=== PATIENT | female | born 1955 | race Caucasian/White ===

== ENCOUNTER 2016-08-04 15:19 | Outpatient (CLI) | payer OTHER ==
[2015-10-14 18:52] VITALS: BMI 36.3
--- NOTE | 2016-08-04 16:06 | DI ---
EXAM: Cervical spine radiographs. HISTORY: Neck pain. COMPARISON: None available. TECHNIQUE: Frontal, lateral and odontoid views. FINDINGS: The normal curvature and alignment are maintained. Vertebral body and intervertebral dis c heights are normal. No fracture or subluxation is seen. Mild endplate osteophyte formation and f acet arthropathy noted. Prevertebral soft tissues are unremarkable. There has been previous sternot jennifer. Left-sided electronic cardiac device is present. IMPRESSION: Mild degenerative changes.
--- NOTE | 2016-08-04 16:12 | DI ---
EXAM: Five views of the lumbar spine HISTORY: Lower back pain. COMPARISON: MRI lumbar spine 08/23/2013 FINDINGS: Superior endplate deformity at L1 is unchanged with minimal superior endplate deformity at L4 also unchanged. No acute compression fracture or subluxation is identified. Scattered facet ar thropathy is present. There is mild narrowing of the lumbosacral junction. Neural foramen appear pa tent. The soft tissues are unremarkable. IMPRESSION: 1. No acute compression fracture or subluxation of the lumbar spine. 2. Old superior endplate compression deformities at L1 and L4 which are unchanged since 2014. 3. Multilevel moderate degenerative disease of the lumbar spine.
== END 2016-08-04 15:20 | disposition home or self-care (01) ==
LOC: RAD 15:19
PROVIDERS: ATTEND Pain Medicine Interventional Pain Medicine
DX: M50.122 Cervical disc disorder at C5-C6 level with radiculopathy (principal); M51.16 Intervertebral disc disorders with radiculopathy, lumbar region; M51.17 Intervertebral disc disorders with radiculopathy, lumbosacral region; M47.816 Spondylosis without myelopathy or radiculopathy, lumbar region; M47.817 Spondylosis without myelopathy or radiculopathy, lumbosacral region; M96.1 Postlaminectomy syndrome, not elsewhere classified; M50.31 Other cervical disc degeneration, high cervical region; M50.321 Other cervical disc degeneration at C4-C5 level; M50.323 Other cervical disc degeneration at C6-C7 level; M50.33 Other cervical disc degeneration, cervicothoracic region; M51.36 Other intervertebral disc degeneration, lumbar region; M51.37 Other intervertebral disc degeneration, lumbosacral region; M43.02 Spondylolysis, cervical region; M47.896 Other spondylosis, lumbar region

== ENCOUNTER 2016-08-15 22:10 | Inpatient (IN) ==
[2016-08-15 22:46] VITALS: BMI 39.7
[2016-08-16 03:13] LABS: BASOPHILS % (AUTO) 0.1 % (0.0-3.0); EOSINOPHILS # (AUTO) 0.1 K/ul (0.0-0.7); HEMATOCRIT 27.7 % (37.0-47.0); HEMOGLOBIN 9.2 g/dl (12.0-16.0); IMMATURE GRANULOCYTE % (AUTO) 0.4 % (0.0-5.0); LYMPHOCYTES # (AUTO) 0.8 K/uL (0.60-3.4); LYMPHOCYTES % (AUTO) 9.6 (10.0-50.0); MEAN CORPUSCULAR HEMOGLOBIN 29.4 pg (27.0-31.0); MEAN CORPUSCULAR HGB CONC 33.2 (31.8-35.4); MEAN CORPUSCULAR VOLUME 88.5 fl (81.0-99.0); MONOCYTES # (AUTO) 0.4 K/uL (0.4-2.0); MONOCYTES % (AUTO) 4.5 (0-10); NEUTROPHILS # (AUTO) 6.9 K/ul (2.0-6.9); NEUTROPHILS % (AUTO) 84.4; PLATELET COUNT 212 10^3/uL (140-440); RED BLOOD COUNT 3.13 10^6/ul (4.20-5.40); WHITE BLOOD COUNT 8.22 K/ul (4.6-10.2)
[2016-08-16] MEDS: PROTONIX PO SCH (05:38)
[2016-08-16] MEDS ORDERED: ZOFRAN ODT PO PRN (08:28)
[2016-08-16] MEDS ORDERED: BETAPACE PO STA (08:45)
[2016-08-16] MEDS ORDERED: BETAPACE PO SCH ×2 (09:00→21:00)
[2016-08-16] MEDS: LOPRESSOR PO SCH (09:20)
[2016-08-16] MEDS: NEURONTIN PO SCH ×2 (09:20→22:06)
[2016-08-16] MEDS: GLUCOPHAGE PO SCH ×2 (09:20→16:55)
[2016-08-16] MEDS: COLACE PO SCH (09:20)
[2016-08-16] MEDS: TRADJENTA PO SCH (09:21)
[2016-08-16] MEDS: ASPIRIN EC PO SCH (09:21)
[2016-08-16] MEDS: ZESTRIL PO SCH (09:21)
[2016-08-16] MEDS: NORCO 10-325 PO PRN ×2 (09:21→17:56)
[2016-08-16] MEDS: ZOFRAN TAB PO PRN ×2 (09:21→17:57)
[2016-08-16] MEDS: HUMULIN R SUBCUT PRN ×2 (10:26→15:23)
--- NOTE | 2016-08-16 10:26 | DI ---
Examination: Frontal and lateral radiographs of the chest. Comparison: 10/14/2015. Reason for study: History of chronic obstructive pulmonary disease. Finding: Operative changes are seen after midline sternotomy and dual lead intracardiac device placement. Th e cardiac silhouette is unchanged. No pneumothorax, pleural effusion, focal consolidation. Impression: No acute cardiopulmonary findings.
--- NOTE | 2016-08-16 11:16 | RS.OTINEVL ---
Subjective - Patient information Date of Evaluation: 08/16/16 Date of Arrival on Unit: 08/15/16 Admitted From:: Facility Transfer Usual Living Arrangement: Alone Living Arrangement Comments: Pt lives alone in her trailer that has 5-6 steps and handrails on both sides. Home Environment: Mobile Home, Rail Medical History Comments:: Was in [place] and had fractured vertebrae and 2 brain bleeds. Surgical History: Knee Replacement Surgical History Comments:: R TKA Subjective Information/ Patient Comments:: I wish I could get rid of this sickness. - Level of function Abilities prior to this admission: Pt was living at home and was driving her car. Pt has a sister that helps her. Current Level of Function: Partially Dependent Current Equipment Used at Home: Walker Pain Assessment - Pain Pain Score: 7 Side: right Pain Location Body Site: Knee Pain Aggravating Factors: ADL's, Changing Position, Standing, Sitting, Walking Pain Alleviating Factors: Ice, Medication Interventions - Objective Patient Orientation: Person, Place, Situation Current Interventions: IV's Observation: Pt Right TKA looks good with only 2 small red areas. Pt has a good bend when sitting EOB. Interventions - ROM Right Upper Extremity AROM: WFL's Left Upper Extremity AROM: WFL's - Strength Right Upper Extremity Strength: Mild Weakness Left Upper Extremity Strength: Mild Weakness - Sensation Right Upper Extremity Sensation: Intact/Normal Left Upper Extremity Sensation: Intact/Normal Balance - Sitting Balance Static Sitting Balance: Good Dynamic Sitting Balance: Good - Standing Balance Static Standing Balance: Fair Dynamic Standing Balance: Fair ADL Skills - Self Feeding Self Feeding: Independent - Grooming Grooming: Min Assist - Bathing Bathing UE: Min Assist Bathing LE: Min Assist - Dressing Dressing UE: CGA Dressing LE: Min Assist - Toilet Management Toileting Management: Min Assist Functional Mobility - Bed Mobility Rolling R/L: CGA Scooting: CGA Supine to Sit: CGA Sit to Supine: CGA - Transfers Sit to Stand: CGA Stand to Sit: CGA Stand Pivot Transfers: CGA - Ambulation Weight Bearing Status: WBAT Assistive Device Used: Rolling Walker Assistance needed with Ambulation: CGA - Safety Awareness Safety Awareness: Good Additional Treatment Performed - Additional units charged ADL: 15 - Time with patient Total treatment time: 15 Activities Patient Interests:: Watching Television, Visiting/Socializing Patient Education Patient Education: Education of diagnosis, Home Exercise Program, Home Safety, Education of Plan of Care Teaching Recipient: Patient Teaching Methods: Discussion Assessment Problem List:: Decreased level of function, Requires training/education, Decreased safety/Risk of falls, Weakness, Pain limits previous level of function Rehab Potential: Good Further Therapy Indicated?: Yes Short Term Goals - Goals GOAL 1: Pt to tolerate 15 minutes of standing activity. Goal to be met by: 08/23/16 GOAL 2: Pt to increase BUE strength to 4+/5 GOAL 3: Pt to be CGA with ADLS. Goal to be met by: 08/23/16 Aircraft Structural Repairer Goals GOAL 1: Pt to tolerate 20 minutes of standing activity. Goal to be met by: 08/22/16 GOAL 2: Pt to increase BUE strength to 5/5 Goal to be met by: 08/29/16 GOAL 3: Pt to be modified independent with ADLS. Goal to be met by: 08/29/16 Plan Plan of Care: Therapeutic EX, Neuromuscular Re-Educ, Therapeutic Activity, Self- Care/Home Management Modalities: Cold Pack/Cryotherapy Frequency of Treatment: 1-2 X day, as tolerated Duration of Treatment: 2 Weeks Anticipated Discharge Destination: Home
--- NOTE | 2016-08-16 12:03 | RS.PTINEVL ---
Subjective - Patient information Date of Evaluation: 08/16/16 Date of Arrival on Unit: 08/15/16 Admitted From:: Facility Transfer Usual Living Arrangement: Alone Living Arrangement Comments: Pt lives alone in her trailer that has 5-6 steps and handrails on both sides. Home Environment: Mobile Home, Rail Medical History Comments:: Was in [place] and had fractured vertebrae and 2 brain bleeds. Surgical History Comments:: R TKA Subjective Information/ Patient Comments:: States she has been sick to her stomach for the last 3 days. States she just had pain medication. Agrees to get up to ambulate. - Level of function Prior to this admission, the patient could do the following:: Independent Selfcare, Independent ADL's, Independent Ambulation, Perform Strip Picker/ Cooking, Drive, Participated in Social Activities Outside home Current Level of Function: Partially Dependent Current Equipment Used at Home: Walker Interventions - Objective Patient Orientation: Person, Place, Time, Situation Observation: Light dressing over right knee incision. Range of Motion - ROM Right Upper Extremity AROM: WFL's Left Upper Extremity AROM: WFL's Right Lower Extremity AROM: Moderate limitation (knee) Left Lower Extremity AROM: WFL's Muscle Strength - Muscle Strength Right Upper Extremity Strength: Normal Left Upper Extremity Strength: Normal Right Lower Extremity Strength: Mild Weakness Left Lower Extremity Strength: Normal Balance - Sitting Balance and Reactions Static Sitting Balance: Good Dynamic Sitting Balance: Good - Standing Balance and Reactions Static Standing Balance: Good (-) Dynamic Standing Balance: Fair (+) Functional Mobility - Bed Mobility Supine to Sit: CGA, 1 person assist, Verbal Cues, Tactile Cues Sit to Supine: CGA, 1 person assist, Verbal Cues, Tactile Cues - Transfers Sit to Stand: CGA, 1 person assist, Verbal Cues, Tactile Cues Stand to Sit: CGA, 1 person assist, Verbal Cues, Tactile Cues Stand Pivot Transfers: CGA, 1 person assist, Verbal Cues, Tactile Cues - Safety Awareness Safety Awareness: Fair Ambulation - Ambulation Weight Bearing Status: FWB Assistive Device Used: Rolling Walker Distance: 80 feet Assistance needed with Ambulation: CGA, 1 person assist, Verbal Cues, Tactile Cues Gait Deviations: Narrow Based gait, Forward posture, Short stride Ambulation Comments: Decreased right knee and hip flexion during swing phase. Lacks good heel strike or toe off on right LE. Decreased stance on the right LE. Factors Affecting Ambulation: Pain, Decreased ROM, Decreased Safety, Limited Endurance Treatment time - Time with patient Total treatment time: 19 Assessment - Assessment Problem List:: Decreased level of function, Requires training/education, Decreased safety/Risk of falls Rehab Potential: Good Further Therapy Indicated?: Yes Short Term Goals GOAL #1: Supine to sit independent with verbal cues. Goal to be met by: 08/19/16 GOAL #2: Sit to stand with supvn with verbal cues. Goal to be met by: 08/19/16 GOAL #3: Amb. 100 feet with SBA of one and good heel strike. Goal to be met by: 08/19/16 Registration Rep Goals GOAL #1: Patient independent with all bed mobility. Goal to be met by: 08/21/16 GOAL #2: All transfers independent with good safety. Goal to be met by: 08/21/16 GOAL #3: Amb. with RW household distances, independent with good safey. Goal to be met by: 08/21/16 Plan Plan of Care: Therapeutic EX, Neuromuscular Re-Educ, Therapeutic Activity, Self- Care/Home Management Modalities: Cold Pack/Cryotherapy (right knee) Frequency of Treatment: 1-2 X day, as tolerated Duration of Treatment: 4-5 days Anticipated Discharge Destination: Home
[2016-08-16] MEDS: XARELTO PO SCH (16:55)
[2016-08-16] MEDS ORDERED: NON-FORMULARY MEDICATION (Sertraline Hcl [Sertraline Hcl] 100 MG) PO SCH (21:00)
[2016-08-16] MEDS ORDERED: CRESTOR PO SCH (21:00)
[2016-08-16] MEDS ORDERED: PROTONIX PO SCH (21:00)
[2016-08-16] MEDS ORDERED: NON-FORMULARY MEDICATION (Ropinirole Hcl [Requip] 0.5 MG) PO SCH (21:00)
[2016-08-16] MEDS: BETAPACE PO SCH (22:06)
[2016-08-16] MEDS: REQUIP PO SCH (22:06)
[2016-08-16] MEDS: ZOLOFT PO SCH (22:07)
[2016-08-16] MEDS: CRESTOR PO SCH (22:07)
[2016-08-17] MEDS: PROTONIX PO SCH (05:42)
[2016-08-17 07:50] LABS: BASOPHILS % (AUTO) 0.4 % (0.0-3.0); EOSINOPHILS # (AUTO) 0.2 K/ul (0.0-0.7); HEMATOCRIT 26.6 % (37.0-47.0); HEMOGLOBIN 8.8 g/dl (12.0-16.0); IMMATURE GRANULOCYTE % (AUTO) 0.6 % (0.0-5.0); LYMPHOCYTES # (AUTO) 1.3 K/uL (0.60-3.4); LYMPHOCYTES % (AUTO) 15.4 (10.0-50.0); MEAN CORPUSCULAR HGB CONC 33.1 (31.8-35.4); MEAN CORPUSCULAR VOLUME 87.8 fl (81.0-99.0); MONOCYTES # (AUTO) 0.6 K/uL (0.4-2.0); MONOCYTES % (AUTO) 7.2 (0-10); NEUTROPHILS # (AUTO) 6.1 K/ul (2.0-6.9); NEUTROPHILS % (AUTO) 74.4; PLATELET COUNT 264 10^3/uL (140-440); RED BLOOD COUNT 3.03 10^6/ul (4.20-5.40); WHITE BLOOD COUNT 8.18 K/ul (4.6-10.2)
[2016-08-17] MEDS: NEURONTIN PO SCH ×2 (08:42→20:58)
[2016-08-17] MEDS: ASPIRIN EC PO SCH (08:42)
[2016-08-17] MEDS: ZESTRIL PO SCH (08:42)
[2016-08-17] MEDS: TRADJENTA PO SCH (08:42)
[2016-08-17] MEDS: GLUCOPHAGE PO SCH ×2 (08:43→17:08)
[2016-08-17] MEDS: COLACE PO SCH (08:43)
[2016-08-17] MEDS: LOPRESSOR PO SCH (08:43)
[2016-08-17] MEDS: ZOFRAN TAB PO PRN (08:59)
[2016-08-17] MEDS: ATIVAN PO PRN (11:46)
[2016-08-17] MEDS: NORCO 10-325 PO PRN ×2 (13:03→19:09)
[2016-08-17] MEDS ORDERED: PHENERGAN 25 MG/ML VIAL 12.5 MG in SODIUM CHLORIDE 50 ML IV PRN (13:21)
[2016-08-17] MEDS: HUMULIN R SUBCUT PRN ×2 (15:28→18:42)
[2016-08-17] MEDS: XARELTO PO SCH (17:09)
[2016-08-17] MEDS: REQUIP PO SCH (20:57)
[2016-08-17] MEDS: ZOLOFT PO SCH (20:57)
[2016-08-17] MEDS: CRESTOR PO SCH (20:58)
[2016-08-17] MEDS: BETAPACE PO SCH (20:58)
[2016-08-18 04:46] LABS: BASOPHILS % (AUTO) 0.5 % (0.0-3.0); EOSINOPHILS # (AUTO) 0.2 K/ul (0.0-0.7); EOSINOPHILS % (AUTO) 3.1 % (0.0-7.0); HEMATOCRIT 27.9 % (37.0-47.0); HEMOGLOBIN 9.2 g/dl (12.0-16.0); IMMATURE GRANULOCYTE % (AUTO) 1.1 % (0.0-5.0); LYMPHOCYTES % (AUTO) 26.8 (10.0-50.0); MEAN CORPUSCULAR HEMOGLOBIN 29.3 pg (27.0-31.0); MEAN CORPUSCULAR VOLUME 88.9 fl (81.0-99.0); MONOCYTES # (AUTO) 0.5 K/uL (0.4-2.0); MONOCYTES % (AUTO) 7.2 (0-10); NEUTROPHILS # (AUTO) 4.6 K/ul (2.0-6.9); NEUTROPHILS % (AUTO) 61.3; PLATELET COUNT 276 10^3/uL (140-440); RED BLOOD COUNT 3.14 10^6/ul (4.20-5.40); WHITE BLOOD COUNT 7.49 K/ul (4.6-10.2)
[2016-08-18 05:04] LABS: ALBUMIN 2.8 g/dL (3.4-5.0); ALBUMIN/GLOBULIN RATIO 0.72; ANION GAP 13.1; BILIRUBIN,TOTAL 0.64 mg/dL (0.00-1.20); CALCIUM 8.7 mg/dL (8.2-10.2); POTASSIUM 4.1 mmol/L (3.5-5.10); TOTAL PROTEIN 6.7 g/dL (5.8-8.1)
[2016-08-18] MEDS: PROTONIX PO SCH (05:36)
[2016-08-18] MEDS: LOPRESSOR PO SCH (08:49)
[2016-08-18] MEDS: COLACE PO SCH (08:49)
[2016-08-18] MEDS: NEURONTIN PO SCH ×2 (08:50→20:37)
[2016-08-18] MEDS: NORCO 10-325 PO PRN ×3 (08:50→22:57)
[2016-08-18] MEDS: GLUCOPHAGE PO SCH ×2 (08:50→16:37)
[2016-08-18] MEDS: TRADJENTA PO SCH (08:50)
[2016-08-18] MEDS: ASPIRIN EC PO SCH (08:50)
[2016-08-18] MEDS: ZESTRIL PO SCH (08:50)
[2016-08-18] MEDS: HUMULIN R SUBCUT PRN ×2 (10:54→18:30)
--- NOTE | 2016-08-18 14:08 | PN ---
DATE OF SERVICE: 08/17/16 SUBJECTIVE: The patient was admitted for the right knee replacement, physical therapy and the occupational therapy. She is doing fine. The patient's friend is in the room. REVIEW OF SYSTEMS: CONSTITUTIONAL: No fever, no chills. HEENT: Normal. ENDOCRINE: No weight gain, no weight loss. CVS: No angina symptoms. No CHF symptoms. No palpitations. No atypical chest pain for CAD. No shortness of breath. No PND, no orthopnea. RESPIRATORY: No cough, no hemoptysis. GI: No nausea, no vomiting. No abdominal pain. Bowel movements. : No hematuria. No polyuria. MUSCULOSKELETAL:. No joint swelling. Complains of pain in the right knee. PSYCHIATRIC: Not anxious. No depression. No suicidal thoughts. No homicidal thoughts. SKIN: Intact. No rash. PHYSICAL EXAMINATION: V/S: Blood pressure 147/75, respiratory rate 14, heart rate 74 and temperature 98.1. HEENT: Normocephalic, atraumatic. Ears, eyes, nose and throat normal. Mucosa dry. Pallor positive. No icterus. NECK: Supple. No JVD, no carotid bruit. No lymphadenopathy. LUNGS: Decreased and clear to auscultation. No rales or rhonchi. HEART: S1, S2 normal. No S3. No murmur, gallop or regurgitation. ABDOMEN: Soft, nontender. Bowel sounds active. No rigidity. No rebound or guarding. No CVA tenderness. EXTREMITIES: No clubbing, cyanosis or pedal edema. Right knee surgical site looks healthy. MUSCULOSKELETAL: No joint swelling. NEUROLOGIC: Awake, alert, oriented times three. No focal deficit. LYMPHATIC: No lymph nodes palpable. SKIN: Intact. LABS: WBC 8.18, hgb 8.8, hct 26.6 and plt count 264. ASSESSMENT: 1. Right knee replacement. 2. Diabetes 3. Anemia, post surgical and anemia of chronic disease PLAN: 1. Continue PT/OT 2. Diet Cardiac and diabetic 3. Will go ahead and get CBC and CMP every other day 4. Xarelto for the DVT prophylaxis. TIME SPENT: More than 30 minutes MTDD
--- NOTE | 2016-08-18 14:40 | HP ---
DATE OF SERVICE: 08/15/16 REASON FOR HOSPITALIZATION: Status post right knee replacement. HISTORY OF PRESENT ILLNESS: The patient is a 61 year old female who is being followed by Dr. Harmon. The patient went for the elective right knee replacement, it was done by Dr. Sanz. After the surgery the patient was started on the weight baring and the patient was needing some physical therapy for which the patient was transferred to the [facility]. As of now the patient is walking with the walker, pain 8 /10. Some constipation is present otherwise no PND or orthopnea. REVIEW OF SYSTEMS: CONSTITUTIONAL: No night sweats. No fatigue, malaise, lethargy. No fever or chills. HEENT: Eyes: No visual changes. No eye pain. No eye discharge. ENT: No runny nose. No epistaxis. No sinus pain. No sore throat. No odynophagia. No ear pain. No congestion. RESPIRATORY: No cough, no congestion. No hemoptysis. CARDIOVASCULAR: No angina symptoms. No CHF symptoms. No atypical chest pain for CAD. No palpitations. No shortness of breath. GASTROINTESTINAL: No abdominal pain. No nausea or vomiting. No diarrhea or constipation. No hematemesis. No hematochezia. GENITOURINARY: No urgency. No frequency. No dysuria. No hematuria. No obstructive symptoms. No discharge. No pain. No significant abnormal bleeding. MUSCULOSKELETAL: No musculoskeletal pain. No joint swelling. No arthritis. Pain in right knee. NEUROLOGICAL: No headache. No neck pain. No syncope. No seizures. No dizziness. PSYCHIATRIC: Not anxious. No depression. No suicidal thoughts. No homicidal thoughts. SKIN: No rash. No lesions. No wounds. ENDOCRINE: No unexplained weight loss. No weight gain. HEMATOLOGIC/LYMPHATIC: No anemia. No purpura. No petechiae. No prolonged or excessive bleeding. No palpable lymph nodes. PERSONAL/FAMILY/SOCIAL HISTORY: The patient does not smoke or drink. Family history is significant for the lung cancer and the coronary artery disease. PAST MEDICAL/SURGICAL PROBLEMS: Coronary artery disease, status post bypass surgery Hypertension Dyslipidemia Diabetes Rheumatoid arthritis GERD Anxiety Two heart attacks Bypass surgeries x2 Right knee replacement, Dr. Sanz MEDICATIONS: Neurontin Metformin Sotalol Famotidine Sertraline Apixaban Lisinopril Aspirin Ropinirole Zithromax Rosuvastatin Albuterol ALLERGIES: Tylenol Oxycodone PHYSICAL EXAMINATION: GENERAL: The patient is VITAL SIGNS: Blood pressure 134/73, respiratory rate 18, heart rate 61 and temperature 97.1. HEENT: Head normocephalic, atraumatic. Eyes: Extraocular muscles are intact. Pupils are equal, round and reactive to light and accommodation. Ears: No lesions. Nose appeared normal. Throat: No exudate or erythema. Mucosa dry. Pallor positive. NECK: Supple. No JVD, no carotid bruit. No lymphadenopathy or thyromegaly. LUNGS: Clear to auscultation. Percussion note normal. Chest symmetrical. HEART: S1, S2, no S3. No murmurs. No cyanosis or clubbing. No ascites. Pulses: Dorsalis pedis and posterior tibial pulses +1 to +2 both sides. ABDOMEN: Soft. Nontender. Bowel sounds active. No CVA tenderness. No mass felt. EXTREMITIES: No edema. Full range of motion of all extremities, equal. Right knee surgical site looks healthy. NEUROLOGIC: No focal deficit. Cranial nerves II through XII are grossly intact. No headache, no double vision or headache. SKIN: Not dry. Intact. Turgor - normal. LYMPHATIC: No palpable lymph nodes/no lymphedema. MUSCULOSKELETAL: Normal joints with no swelling. Muscle tone is normal. LABS: WBC 8.22, hgb 9.2, hct 27.7, plt count 212, BUN and creatinine was normal from the [facility] which were not done at [place]. ASSESSMENT: 1. Status post right knee replacement. 2. Diabetes 3. Anemia, post surgical 4. Rheumatoid arthritis 5. Hypertension 6. Dyslipidemia 7. Atrial fibrillation 8. CAD 9. Bypass surgery PLAN: 1. Admit patient to the [facility] 2. PT/OT evaluated and treat 3. Accu-check Q 4 hours and coverage 4. ADA diet 5. Continue home medication 6. Xarelto for the DVT prophylaxis TIME SPENT: More than 70 minutes. MTDD
[2016-08-18] MEDS: XARELTO PO SCH (16:37)
[2016-08-18] MEDS: REQUIP PO SCH (20:36)
[2016-08-18] MEDS: CRESTOR PO SCH (20:37)
[2016-08-18] MEDS: ZOLOFT PO SCH (20:37)
[2016-08-18] MEDS: BETAPACE PO SCH (20:37)
[2016-08-18] MEDS: ATIVAN PO PRN (22:57)
[2016-08-19] MEDS: PROTONIX PO SCH (05:35)
[2016-08-19] MEDS: LOPRESSOR PO SCH (08:47)
[2016-08-19] MEDS: COLACE PO SCH (08:47)
[2016-08-19] MEDS: ZESTRIL PO SCH (08:47)
[2016-08-19] MEDS: ASPIRIN EC PO SCH (08:47)
[2016-08-19] MEDS: TRADJENTA PO SCH (08:48)
[2016-08-19] MEDS: GLUCOPHAGE PO SCH ×2 (08:48→17:23)
[2016-08-19] MEDS: NEURONTIN PO SCH ×2 (08:49→20:39)
[2016-08-19] MEDS: HUMULIN R SUBCUT PRN ×3 (11:10→20:42)
[2016-08-19] MEDS: NORCO 10-325 PO PRN ×2 (13:10→19:06)
--- NOTE | 2016-08-19 13:15 | PCM.PROG ---
Attending Provider: ATTENDING PROVIDER: Dr. NAKUL MARTINEZ DATE OF SERVICE: 08/19/16 SUBJECTIVE: This 61 year old WHITE/ F was hospitalized 08/15/16. The patient's incision is healing well. She has been up walking with PT/OT and is progressing to meet her goals for rehab to home. REVIEW OF SYSTEMS: CONSTITUTIONAL: No fever, no chills. ENDOCRINE: No weight loss or weight gain. HEENT: No sinus drainage, no sore throat. CVS: No angina symptoms. No CHF symptoms. No palpitations. No atypical chest pain for CAD. No shortness of breath. RESPIRATORY: No cough, no hemoptysis. GI: No melena. No abdominal pain. No nausea, no vomiting. : No hematuria. No polyuria. SKIN: No rash. Right knee incision healthy looking. No drainage, no swelling. MUSCULOSKELETAL: No pain. SOCIAL SCIENTIST: No blackout, no dizziness. No headache. No double vision. PSYCHIATRIC: Not anxious; no depression. No suicidal thoughts. No homicidal thoughts. PHYSICAL EXAMINATION: GENERAL: Lying in bed in no distress. VITAL SIGNS: Temperature 97.5 F, Pulse 59, Respiratory Rate 16, BP 100/54, Pulse Ox 98% HEENT: Normocephalic, atraumatic. Mucosa is dry, pallor positive. NECK: No JVP, no carotid bruit. No lymphadenopathy. CARDIAC: S1, S2, no S3. No murmur, gallop or regurgitation. LUNGS: Clear to auscultation. ABDOMEN: Soft, non-tender. Bowel sounds active. No rigidity, guarding or CVA tenderness. EXTREMITIES: No clubbing, cyanosis or edema. Right knee incision. NEUROLOGIC: Awake, alert and oriented x3. LYMPHATIC: No palpable lymph nodes SKIN: Not dry. Intact. MUSCULOSKELETAL: No joint swelling. LAB REVIEW: 08/18/16 04:43 08/18/16 04:43 ASSESSMENT: 1. RIGHT KNEE REPLACEMENT 2. DIABETES 3. ANEMIA, POST SURGICAL AND ANEMIA OF CHRONIC DISEASE PLAN: 1. Continue present management. Plan and coordination of the patient's care discussed in the presence of Heating And Refrigeration Inspector and nurse. SCRIBED BY: JONI MOTTA Network Security Analyst scribed while in presence of service performed by Dr. NAKUL MARTINEZ on 08/19/16 ([id number])
[2016-08-19] MEDS: XARELTO PO SCH (17:23)
[2016-08-19] MEDS: ATIVAN PO PRN (20:39)
[2016-08-19] MEDS: CRESTOR PO SCH (20:39)
[2016-08-19] MEDS: ZOLOFT PO SCH (20:39)
[2016-08-19] MEDS: BETAPACE PO SCH (20:40)
[2016-08-19] MEDS: REQUIP PO SCH (20:40)
[2016-08-20 04:38] LABS: BASOPHILS % (AUTO) 0.5 % (0.0-3.0); EOSINOPHILS # (AUTO) 0.2 K/ul (0.0-0.7); EOSINOPHILS % (AUTO) 2.6 % (0.0-7.0); HEMATOCRIT 25.5 % (37.0-47.0); HEMOGLOBIN 8.3 g/dl (12.0-16.0); IMMATURE GRANULOCYTE % (AUTO) 1.2 % (0.0-5.0); LYMPHOCYTES # (AUTO) 1.8 K/uL (0.60-3.4); MEAN CORPUSCULAR HGB CONC 32.5 (31.8-35.4); MEAN CORPUSCULAR VOLUME 89.2 fl (81.0-99.0); MONOCYTES # (AUTO) 0.6 K/uL (0.4-2.0); MONOCYTES % (AUTO) 7.3 (0-10); NEUTROPHILS # (AUTO) 5.5 K/ul (2.0-6.9); NEUTROPHILS % (AUTO) 66.4; PLATELET COUNT 287 10^3/uL (140-440); RED BLOOD COUNT 2.86 10^6/ul (4.20-5.40); WHITE BLOOD COUNT 8.32 K/ul (4.6-10.2)
[2016-08-20 05:03] LABS: ALBUMIN 2.7 g/dL (3.4-5.0); ALBUMIN/GLOBULIN RATIO 0.82; ANION GAP 15.7; BILIRUBIN,TOTAL 0.56 mg/dL (0.00-1.20); BUN/CREATININE RATIO 27.55; CALCIUM 8.1 mg/dL (8.2-10.2); CREATININE 1.27 mg/dL (0.60-1.30); POTASSIUM 4.7 mmol/L (3.5-5.10)
[2016-08-20] MEDS: HUMULIN R SUBCUT PRN ×4 (05:37→21:19)
[2016-08-20] MEDS: PROTONIX PO SCH (05:38)
[2016-08-20] MEDS: LOPRESSOR PO SCH (09:02)
[2016-08-20] MEDS: ASPIRIN EC PO SCH (09:02)
[2016-08-20] MEDS: COLACE PO SCH (09:02)
[2016-08-20] MEDS: ZESTRIL PO SCH (09:03)
[2016-08-20] MEDS: TRADJENTA PO SCH (09:03)
[2016-08-20] MEDS: GLUCOPHAGE PO SCH ×2 (09:03→17:22)
[2016-08-20] MEDS: NEURONTIN PO SCH ×2 (09:04→21:14)
[2016-08-20] MEDS: XARELTO PO SCH (17:22)
[2016-08-20] MEDS: CRESTOR PO SCH (21:15)
[2016-08-20] MEDS: REQUIP PO SCH (21:15)
[2016-08-20] MEDS: ZOLOFT PO SCH (21:16)
[2016-08-20] MEDS: BETAPACE PO SCH (21:18)
[2016-08-21] MEDS: PROTONIX PO SCH (06:02)
[2016-08-21] MEDS: HUMULIN R SUBCUT PRN ×3 (06:57→17:48)
[2016-08-21] MEDS: COLACE PO SCH (08:37)
[2016-08-21] MEDS: NEURONTIN PO SCH ×2 (08:37→20:08)
[2016-08-21] MEDS: GLUCOPHAGE PO SCH ×2 (08:37→17:38)
[2016-08-21] MEDS: ASPIRIN EC PO SCH (08:38)
[2016-08-21] MEDS: LOPRESSOR PO SCH (08:38)
[2016-08-21] MEDS: ZESTRIL PO SCH (08:38)
[2016-08-21] MEDS: NORCO 10-325 PO PRN ×2 (08:39→16:25)
[2016-08-21] MEDS: TRADJENTA PO SCH (08:40)
[2016-08-21 15:04] LABS: IMMATURE RETIC FRACTION 27.9; RETICULOCYTE % 3.48 %
[2016-08-21 15:55] LABS: FERRITIN 109.4 ng/mL (4.63-204.00)
[2016-08-21] MEDS: XARELTO PO SCH (17:38)
[2016-08-21] MEDS: CRESTOR PO SCH (20:07)
[2016-08-21] MEDS: REQUIP PO SCH (20:08)
[2016-08-21] MEDS: ZOLOFT PO SCH (20:08)
[2016-08-21] MEDS: BETAPACE PO SCH (20:08)
[2016-08-21] MEDS: ATIVAN PO PRN (20:15)
[2016-08-22] MEDS: PROTONIX PO SCH (05:29)
[2016-08-22 06:21] LABS: BASOPHILS % (AUTO) 0.4 % (0.0-3.0); EOSINOPHILS # (AUTO) 0.2 K/ul (0.0-0.7); EOSINOPHILS % (AUTO) 3.2 % (0.0-7.0); HEMATOCRIT 25.8 % (37.0-47.0); HEMOGLOBIN 8.3 g/dl (12.0-16.0); IMMATURE GRANULOCYTE % (AUTO) 1.5 % (0.0-5.0); LYMPHOCYTES # (AUTO) 1.5 K/uL (0.60-3.4); MEAN CORPUSCULAR HEMOGLOBIN 29.1 pg (27.0-31.0); MEAN CORPUSCULAR HGB CONC 32.2 (31.8-35.4); MEAN CORPUSCULAR VOLUME 90.5 fl (81.0-99.0); MONOCYTES # (AUTO) 0.5 K/uL (0.4-2.0); MONOCYTES % (AUTO) 6.6 (0-10); NEUTROPHILS # (AUTO) 4.9 K/ul (2.0-6.9); NEUTROPHILS % (AUTO) 67.3; PLATELET COUNT 261 10^3/uL (140-440); RED BLOOD COUNT 2.85 10^6/ul (4.20-5.40); WHITE BLOOD COUNT 7.28 K/ul (4.6-10.2)
[2016-08-22 06:47] LABS: ALBUMIN 2.7 g/dL (3.4-5.0); ALBUMIN/GLOBULIN RATIO 0.79; ANION GAP 14.3; BILIRUBIN,TOTAL 0.41 mg/dL (0.00-1.20); BUN/CREATININE RATIO 22.34; CALCIUM 8.4 mg/dL (8.2-10.2); CREATININE 0.94 mg/dL (0.60-1.30); POTASSIUM 5.3 mmol/L (3.5-5.10); TOTAL PROTEIN 6.1 g/dL (5.8-8.1)
[2016-08-22] MEDS: HUMULIN R SUBCUT PRN ×2 (07:08→11:28)
[2016-08-22] MEDS: ZESTRIL PO SCH (08:49)
[2016-08-22] MEDS: ASPIRIN EC PO SCH (08:49)
[2016-08-22] MEDS: COLACE PO SCH (08:49)
[2016-08-22] MEDS: NEURONTIN PO SCH ×2 (08:49→20:15)
[2016-08-22] MEDS: TRADJENTA PO SCH (08:50)
[2016-08-22] MEDS: GLUCOPHAGE PO SCH ×2 (08:50→17:05)
[2016-08-22] MEDS: LOPRESSOR PO SCH (08:50)
[2016-08-22] MEDS: NORCO 10-325 PO PRN ×2 (08:55→19:13)
[2016-08-22] MEDS: FERROUS SULFATE PO SCH ×2 (17:05→20:15)
[2016-08-22] MEDS: XARELTO PO SCH (17:05)
[2016-08-22] MEDS: BETAPACE PO SCH (20:14)
[2016-08-22] MEDS: REQUIP PO SCH (20:14)
[2016-08-22] MEDS: ZOLOFT PO SCH (20:15)
[2016-08-22] MEDS: CRESTOR PO SCH (20:15)
[2016-08-22] MEDS: ATIVAN PO PRN (20:39)
[2016-08-23] MEDS: PROTONIX PO SCH (05:33)
[2016-08-23 07:45] LABS: BASOPHILS % (AUTO) 0.5 % (0.0-3.0); EOSINOPHILS # (AUTO) 0.2 K/ul (0.0-0.7); EOSINOPHILS % (AUTO) 3.2 % (0.0-7.0); HEMATOCRIT 26.2 % (37.0-47.0); HEMOGLOBIN 8.3 g/dl (12.0-16.0); IMMATURE GRANULOCYTE % (AUTO) 1.3 % (0.0-5.0); LYMPHOCYTES # (AUTO) 1.8 K/uL (0.60-3.4); LYMPHOCYTES % (AUTO) 24.1 (10.0-50.0); MEAN CORPUSCULAR HEMOGLOBIN 28.6 pg (27.0-31.0); MEAN CORPUSCULAR HGB CONC 31.7 (31.8-35.4); MEAN CORPUSCULAR VOLUME 90.3 fl (81.0-99.0); MONOCYTES # (AUTO) 0.6 K/uL (0.4-2.0); MONOCYTES % (AUTO) 7.4 (0-10); NEUTROPHILS # (AUTO) 4.7 K/ul (2.0-6.9); NEUTROPHILS % (AUTO) 63.5; PLATELET COUNT 273 10^3/uL (140-440); WHITE BLOOD COUNT 7.44 K/ul (4.6-10.2)
[2016-08-23 08:14] LABS: ALBUMIN 2.8 g/dL (3.4-5.0); ALBUMIN/GLOBULIN RATIO 0.82; ANION GAP 13.5; BILIRUBIN,TOTAL 0.4 mg/dL (0.00-1.20); BUN/CREATININE RATIO 21.78; CALCIUM 8.5 mg/dL (8.2-10.2); CREATININE 1.01 mg/dL (0.60-1.30); POTASSIUM 5.5 mmol/L (3.5-5.10); TOTAL PROTEIN 6.2 g/dL (5.8-8.1)
[2016-08-23] MEDS: ASPIRIN EC PO SCH (09:32)
[2016-08-23] MEDS: TRADJENTA PO SCH (09:32)
[2016-08-23] MEDS: GLUCOPHAGE PO SCH ×2 (09:32→16:43)
[2016-08-23] MEDS: COLACE PO SCH (09:33)
[2016-08-23] MEDS: FERROUS SULFATE PO SCH ×3 (09:33→20:43)
[2016-08-23] MEDS: NEURONTIN PO SCH ×2 (09:33→20:43)
[2016-08-23] MEDS: LOPRESSOR PO SCH (09:33)
[2016-08-23] MEDS: ZESTRIL PO SCH (09:33)
[2016-08-23] MEDS: NORCO 10-325 PO PRN (09:59)
[2016-08-23] MEDS: HUMULIN R SUBCUT PRN (11:49)
[2016-08-23] MEDS: XARELTO PO SCH (16:44)
[2016-08-23] MEDS ORDERED: KAYEXALATE SUSP PO STA (17:16)
[2016-08-23] MEDS: ZOLOFT PO SCH (20:41)
[2016-08-23] MEDS: BETAPACE PO SCH (20:42)
[2016-08-23] MEDS: CRESTOR PO SCH (20:42)
[2016-08-23] MEDS: REQUIP PO SCH (20:42)
[2016-08-23] MEDS: ATIVAN PO PRN (20:45)
[2016-08-24 04:56] LABS: OCCULT BLOOD INTERNAL QC 1 INTERNAL QC VALID; OCCULT BLOOD SAMPLE 1 NEGATIVE (NEGATIVE)
[2016-08-24 05:05] LABS: BASOPHILS # (AUTO) 0.1 K/uL (0-0.2); BASOPHILS % (AUTO) 0.7 % (0.0-3.0); EOSINOPHILS # (AUTO) 0.2 K/ul (0.0-0.7); EOSINOPHILS % (AUTO) 2.7 % (0.0-7.0); HEMATOCRIT 26.3 % (37.0-47.0); HEMOGLOBIN 8.3 g/dl (12.0-16.0); IMMATURE GRANULOCYTE % (AUTO) 0.7 % (0.0-5.0); LYMPHOCYTES # (AUTO) 2.1 K/uL (0.60-3.4); LYMPHOCYTES % (AUTO) 27.5 (10.0-50.0); MEAN CORPUSCULAR HEMOGLOBIN 28.4 pg (27.0-31.0); MEAN CORPUSCULAR HGB CONC 31.6 (31.8-35.4); MEAN CORPUSCULAR VOLUME 90.1 fl (81.0-99.0); MONOCYTES # (AUTO) 0.6 K/uL (0.4-2.0); MONOCYTES % (AUTO) 7.2 (0-10); NEUTROPHILS # (AUTO) 4.7 K/ul (2.0-6.9); NEUTROPHILS % (AUTO) 61.2; PLATELET COUNT 287 10^3/uL (140-440); RED BLOOD COUNT 2.92 10^6/ul (4.20-5.40); WHITE BLOOD COUNT 7.68 K/ul (4.6-10.2)
[2016-08-24 05:23] LABS: ALBUMIN 2.9 g/dL (3.4-5.0); ALBUMIN/GLOBULIN RATIO 0.85; ANION GAP 13.8; BILIRUBIN,TOTAL 0.36 mg/dL (0.00-1.20); BUN/CREATININE RATIO 18.75; CALCIUM 8.6 mg/dL (8.2-10.2); CREATININE 0.96 mg/dL (0.60-1.30); POTASSIUM 4.8 mmol/L (3.5-5.10); TOTAL PROTEIN 6.3 g/dL (5.8-8.1)
[2016-08-24] MEDS: PROTONIX PO SCH (06:09)
[2016-08-24] MEDS: ASPIRIN EC PO SCH (08:50)
[2016-08-24] MEDS: GLUCOPHAGE PO SCH ×2 (08:50→17:05)
[2016-08-24] MEDS: COLACE PO SCH (08:50)
[2016-08-24] MEDS: TRADJENTA PO SCH (08:50)
[2016-08-24] MEDS: ZESTRIL PO SCH (08:50)
[2016-08-24] MEDS: NEURONTIN PO SCH ×2 (08:50→20:55)
[2016-08-24] MEDS: LOPRESSOR PO SCH (08:51)
[2016-08-24] MEDS: FERROUS SULFATE PO SCH ×3 (08:51→20:54)
[2016-08-24 10:47] LABS: BILIRUBIN,URINE Negative (NEGATIVE); KETONES,URINE Negative (NEGATIVE); LEUKOCYTE ESTERASE ,URINE 2+ (NEGATIVE); NITRITE,URINE Negative (NEGATIVE); PROTEIN,URINE 2+ (NEGATIVE); URINE, BLOOD 2+ (NEGATIVE)
[2016-08-24 10:49] LABS: ADD URINE MICROSCOPIC YES
[2016-08-24 10:50] LABS: BACTERIA,URINE 3+ (NOT PRESENT)
[2016-08-24] MEDS: HUMULIN R SUBCUT PRN ×3 (11:46→20:55)
[2016-08-24] MEDS: NORCO 10-325 PO PRN ×3 (15:28→21:30)
[2016-08-24 16:55] LABS: OCCULT BLOOD INTERNAL QC 2 INTERNAL QC VALID; OCCULT BLOOD INTERNAL QC 3 INTERNAL QC VALID; OCCULT BLOOD SAMPLE 2 NO SPECIMEN RECEIVED (NEGATIVE); OCCULT BLOOD SAMPLE 3 NO SPECIMEN RECEIVED (NEGATIVE)
[2016-08-24] MEDS: XARELTO PO SCH (17:05)
[2016-08-24] MEDS: CRESTOR PO SCH (20:53)
[2016-08-24] MEDS: REQUIP PO SCH (20:53)
[2016-08-24] MEDS: ATIVAN PO PRN (20:53)
[2016-08-24] MEDS: ZOLOFT PO SCH (20:54)
[2016-08-24] MEDS: BETAPACE PO SCH (20:55)
[2016-08-25] MEDS: BACTRIM DS 800/160 MG PO SCH ×3 (00:19→20:49)
[2016-08-25 05:27] LABS: BASOPHILS % (AUTO) 0.4 % (0.0-3.0); EOSINOPHILS # (AUTO) 0.2 K/ul (0.0-0.7); EOSINOPHILS % (AUTO) 2.9 % (0.0-7.0); HEMATOCRIT 25.1 % (37.0-47.0); IMMATURE GRANULOCYTE % (AUTO) 0.7 % (0.0-5.0); LYMPHOCYTES # (AUTO) 1.7 K/uL (0.60-3.4); MEAN CORPUSCULAR HGB CONC 31.9 (31.8-35.4); MEAN CORPUSCULAR VOLUME 90.9 fl (81.0-99.0); MONOCYTES # (AUTO) 0.4 K/uL (0.4-2.0); MONOCYTES % (AUTO) 5.5 (0-10); NEUTROPHILS % (AUTO) 67.5; PLATELET COUNT 267 10^3/uL (140-440); RED BLOOD COUNT 2.76 10^6/ul (4.20-5.40); WHITE BLOOD COUNT 7.47 K/ul (4.6-10.2)
[2016-08-25 05:45] LABS: ALBUMIN 2.8 g/dL (3.4-5.0); ALBUMIN/GLOBULIN RATIO 0.85; ANION GAP 12.7; BILIRUBIN,TOTAL 0.28 mg/dL (0.00-1.20); BUN/CREATININE RATIO 18.18; CALCIUM 8.3 mg/dL (8.2-10.2); CREATININE 0.88 mg/dL (0.60-1.30); POTASSIUM 4.7 mmol/L (3.5-5.10); TOTAL PROTEIN 6.1 g/dL (5.8-8.1)
[2016-08-25] MEDS: PROTONIX PO SCH (06:04)
[2016-08-25] MEDS: NORCO 10-325 PO PRN (06:04)
[2016-08-25] MEDS: ASPIRIN EC PO SCH (08:38)
[2016-08-25] MEDS: COLACE PO SCH (08:39)
[2016-08-25] MEDS: GLUCOPHAGE PO SCH ×2 (08:40→16:44)
[2016-08-25] MEDS: FERROUS SULFATE PO SCH ×3 (08:40→20:49)
[2016-08-25] MEDS: ZESTRIL PO SCH (08:41)
[2016-08-25] MEDS: LOPRESSOR PO SCH (08:41)
[2016-08-25] MEDS: NEURONTIN PO SCH ×2 (08:41→20:49)
[2016-08-25] MEDS: TRADJENTA PO SCH (08:41)
[2016-08-25] MEDS ORDERED: AZO CRANBERRY PO SCH (09:00)
--- NOTE | 2016-08-25 10:11 | PN ---
DATE OF SERVICE: 08/23/16 SUBJECTIVE: The patient has been in the swing bed after the right knee replacement. She has been walking up and about. Hbg has been steady 8.8 to 8.3. Not been constipated and having the regular bowel movements. REVIEW OF SYSTEMS: CONSTITUTIONAL: No fever, no chills. HEENT: Normal. ENDOCRINE: No weight gain, no weight loss. CVS: No angina symptoms. No CHF symptoms. No palpitations. No atypical chest pain for CAD. No shortness of breath. No PND, no orthopnea. RESPIRATORY: No cough, no hemoptysis. GI: No nausea, no vomiting. No abdominal pain. : No hematuria. No polyuria. MUSCULOSKELETAL:. No joint swelling. PSYCHIATRIC: Not anxious. No depression. No suicidal thoughts. No homicidal thoughts. SKIN: Intact. No rash. PHYSICAL EXAMINATION: V/S: Blood pressure 105/51, respiratory rate 16, heart rate 60 and temperature 99.2. HEENT: Normocephalic, atraumatic. Ears, eyes, nose and throat normal. Mucosa dry. Pallor positive. NECK: Supple. No JVD, no carotid bruit. No lymphadenopathy. LUNGS: Clear to auscultation. No rales or rhonchi. HEART: S1, S2 normal. No S3. No murmur, gallop or regurgitation. ABDOMEN: Soft, nontender. Bowel sounds active. No rigidity. No rebound or guarding. No CVA tenderness. EXTREMITIES: No clubbing, cyanosis or pedal edema. Right knee surgical site looks healthy. Healthy granulation tissues. Some warmness is present. MUSCULOSKELETAL: No joint swelling. NEUROLOGIC: Awake, alert, oriented times three. No focal deficit. LYMPHATIC: No lymph nodes palpable. SKIN: Intact. LABS: WBC 7.44, hgb 8.3, hct 26.2, plt count 274, sodium 137, potassium 5.5, chloride 105, bicarb 24, BUN 22 and creatinine 1.01. ASSESSMENT: 1. Status post right knee replacement 2. Hypertension 3. Dyslipidemia 4. Diabetes 5. History of rheumatoid arthritis 6. Anemia of chronic disease PLAN: 1. Continue the Xarelto 2. Continue Betapace 3. Will go ahead and give a dose of Kayexalate for hyperkalemia 4. Daily I&O's TIME SPENT: More than 30 minutes MTDD
--- NOTE | 2016-08-25 10:25 | PCM.PROG ---
Attending Provider: ATTENDING PROVIDER: Dr. NAKUL MARTINEZ DATE OF SERVICE: 08/25/16 SUBJECTIVE: This 61 year old WHITE/ F was hospitalized 08/15/16. The patient states she is states better today. She is walking better. Hemoglobin dropped to 8. She was found to have a UTI. She was started on Bactrim twice a day. Humberto have to be removed today right leg. REVIEW OF SYSTEMS: CONSTITUTIONAL: No fever, no chills. ENDOCRINE: No weight loss or weight gain. HEENT: No sinus drainage, no sore throat. CVS: No angina symptoms. No CHF symptoms. No palpitations. No atypical chest pain for CAD. No shortness of breath. RESPIRATORY: No cough, no hemoptysis. GI: No melena. No abdominal pain. No nausea, no vomiting. : No hematuria. No polyuria. SKIN: No rash. Incision right leg, healing well. MUSCULOSKELETAL: No pain. COOLING ROOM ATTENDANT: No blackout, no dizziness. No headache. No double vision. PSYCHIATRIC: Not anxious; no depression. No suicidal thoughts. No homicidal thoughts. PHYSICAL EXAMINATION: GENERAL: Lying in bed in no distress. VITAL SIGNS: Temperature 98.5 F, Pulse 60, Respiratory Rate 18, BP 99/61, Pulse Ox 95% HEENT: Normocephalic, atraumatic. Mucosa is dry, pallor positive. NECK: No JVP, no carotid bruit. No lymphadenopathy. CARDIAC: S1, S2, no S3. Systolic murmur. LUNGS: Clear to auscultation. ABDOMEN: Soft, non-tender. Bowel sounds active. No rigidity, guarding or CVA tenderness. EXTREMITIES: No clubbing, cyanosis or edema. Right knee incision shows healthy granulation tissue. Some warmth to touch. NEUROLOGIC: Awake, alert and oriented x3. LYMPHATIC: No palpable lymph nodes SKIN: Not dry. Intact. MUSCULOSKELETAL: No joint swelling. LAB REVIEW: 08/25/16 05:10 08/25/16 05:10 08/25/16 05:10: WBC 7.47, RBC 2.76 L, Hgb 8.0 L, Hct 25.1 L, MCV 90.9, MCH 29.0 , MCHC 31.9, RDW Coeff of Jame 14.1, Plt Count 267, Immature Gran % (Auto) 0.7, Neut % (Auto) 67.5, Lymph % (Auto) 23.0, Beadle % (Auto) 5.5, Eos % (Auto) 2.9, Baso % (Auto) 0.4, Immature Gran # (Auto) 0.1, Neut # 5.0, Lymph # 1.7, Beadle # 0.4, Eos # 0.2, Baso # 0.0, Sodium 137, Potassium 4.7, Chloride 105, Carbon Dioxide 24, Anion Gap 12.7, BUN 16, Creatinine 0.88, Estimated GFR (MDRD) 65.00 , BUN/Creatinine Ratio 18.18, Glucose 129 H, Calcium 8.3, Total Bilirubin 0.28, AST 11 L, ALT 7 L, Alkaline Phosphatase 49 L, Total Protein 6.1, Albumin 2.8 L, Globulin 3.3, Albumin/Globulin Ratio 0.85 08/24/16 10:40: Urine Color Yellow, Urine Clarity Turbid, Urine pH 6.0, Ur Specific [place] 1.025, Urine Protein 2+, Urine Glucose (UA) Negative, Urine Ketones Negative, Urine Blood 2+, Urine Nitrite Negative, Urine Bilirubin Negative, Urine Urobilinogen 1.0, Ur Leukocyte Esterase 2+, Urine Microscopic RBC 10-20, Urine Microscopic WBC Tntc, Ur Squamous Epith Cells Not present, Urine Bacteria 3+ 08/23/16 22:05: Stool Occult Blood #2 No specimen received, Stool Occult Blood # 3 No specimen received ASSESSMENT: 1. RIGHT KNEE REPLACEMENT 2. DIABETES 3. ANEMIA, POST SURGICAL AND ANEMIA OF CHRONIC DISEASE 4. UTI 5. HYPERTENSION 6. RHEUMATOID ARTHRITIS PLAN: 1. Transfuse one unit 2. Remove humberto 3. PT/OT continue therapy Plan and coordination of the patient's care discussed in the presence of Telecommunications Repairer and nurse. CONDITION: Stable SCRIBED BY: JONI MOTTA, Announcer scribed while in presence of service performed by Dr. NAKUL MARTINEZ on 08/25/16 ([id number])
[2016-08-25] MEDS: ATIVAN PO PRN ×2 (11:04→20:50)
[2016-08-25] MEDS: HUMULIN R SUBCUT PRN (11:43)
[2016-08-25 14:58] LABS: HEMATOCRIT 31.4 % (37.0-47.0)
[2016-08-25] MEDS: XARELTO PO SCH (16:43)
[2016-08-25] MEDS: ZOLOFT PO SCH (20:48)
[2016-08-25] MEDS: REQUIP PO SCH (20:48)
[2016-08-25] MEDS: CRESTOR PO SCH (20:49)
[2016-08-25] MEDS: BETAPACE PO SCH (20:49)
[2016-08-26 04:26] LABS: BASOPHILS % (AUTO) 0.3 % (0.0-3.0); EOSINOPHILS # (AUTO) 0.2 K/ul (0.0-0.7); EOSINOPHILS % (AUTO) 2.3 % (0.0-7.0); HEMATOCRIT 28.7 % (37.0-47.0); HEMOGLOBIN 9.4 g/dl (12.0-16.0); IMMATURE GRANULOCYTE % (AUTO) 0.8 % (0.0-5.0); LYMPHOCYTES # (AUTO) 1.8 K/uL (0.60-3.4); LYMPHOCYTES % (AUTO) 19.9 (10.0-50.0); MEAN CORPUSCULAR HEMOGLOBIN 29.7 pg (27.0-31.0); MEAN CORPUSCULAR HGB CONC 32.8 (31.8-35.4); MEAN CORPUSCULAR VOLUME 90.8 fl (81.0-99.0); MONOCYTES # (AUTO) 0.5 K/uL (0.4-2.0); MONOCYTES % (AUTO) 5.4 (0-10); NEUTROPHILS # (AUTO) 6.3 K/ul (2.0-6.9); NEUTROPHILS % (AUTO) 71.3; PLATELET COUNT 286 10^3/uL (140-440); RED BLOOD COUNT 3.16 10^6/ul (4.20-5.40); WHITE BLOOD COUNT 8.88 K/ul (4.6-10.2)
[2016-08-26 04:43] LABS: ALBUMIN 2.8 g/dL (3.4-5.0); ALBUMIN/GLOBULIN RATIO 0.85; ANION GAP 14.2; BILIRUBIN,TOTAL 0.32 mg/dL (0.00-1.20); CALCIUM 8.5 mg/dL (8.2-10.2); POTASSIUM 5.2 mmol/L (3.5-5.10); TOTAL PROTEIN 6.1 g/dL (5.8-8.1)
[2016-08-26] MEDS: PROTONIX PO SCH (05:29)
[2016-08-26] MEDS: NEURONTIN PO SCH ×2 (09:01→20:34)
[2016-08-26] MEDS: GLUCOPHAGE PO SCH ×2 (09:01→17:21)
[2016-08-26] MEDS: BACTRIM DS 800/160 MG PO SCH ×2 (09:02→20:35)
[2016-08-26] MEDS: ZESTRIL PO SCH (09:02)
[2016-08-26] MEDS: FERROUS SULFATE PO SCH ×3 (09:02→20:35)
[2016-08-26] MEDS: COLACE PO SCH (09:02)
[2016-08-26] MEDS: TRADJENTA PO SCH (09:02)
[2016-08-26] MEDS: LOPRESSOR PO SCH (09:02)
[2016-08-26] MEDS: ASPIRIN EC PO SCH (09:02)
[2016-08-26] MEDS: HUMULIN R SUBCUT PRN ×2 (11:39→17:20)
[2016-08-26 13:39] LABS: OCCULT BLOOD INTERNAL QC 1 INTERNAL QC VALID; OCCULT BLOOD SAMPLE 1 POSITIVE (NEGATIVE)
[2016-08-26] MEDS: NORCO 10-325 PO PRN (14:46)
[2016-08-26] MEDS: XARELTO PO SCH (17:21)
[2016-08-26] MEDS: REQUIP PO SCH (20:34)
[2016-08-26] MEDS: BETAPACE PO SCH (20:35)
[2016-08-26] MEDS: ZOLOFT PO SCH (20:36)
[2016-08-26] MEDS: CRESTOR PO SCH (20:38)
[2016-08-26] MEDS: ATIVAN PO PRN (21:20)
[2016-08-27 00:02] LABS: OCCULT BLOOD INTERNAL QC 2 INTERNAL QC VALID; OCCULT BLOOD INTERNAL QC 3 INTERNAL QC VALID; OCCULT BLOOD SAMPLE 2 NO SPECIMEN RECEIVED (NEGATIVE); OCCULT BLOOD SAMPLE 3 NO SPECIMEN RECEIVED (NEGATIVE)
[2016-08-27 04:45] LABS: BASOPHILS # (AUTO) 0.1 K/uL (0-0.2); BASOPHILS % (AUTO) 0.5 % (0.0-3.0); EOSINOPHILS # (AUTO) 0.3 K/ul (0.0-0.7); EOSINOPHILS % (AUTO) 2.8 % (0.0-7.0); HEMATOCRIT 28.6 % (37.0-47.0); HEMOGLOBIN 9.1 g/dl (12.0-16.0); IMMATURE GRANULOCYTE % (AUTO) 0.9 % (0.0-5.0); LYMPHOCYTES # (AUTO) 2.3 K/uL (0.60-3.4); LYMPHOCYTES % (AUTO) 23.8 (10.0-50.0); MEAN CORPUSCULAR HEMOGLOBIN 29.3 pg (27.0-31.0); MEAN CORPUSCULAR HGB CONC 31.8 (31.8-35.4); MONOCYTES # (AUTO) 0.6 K/uL (0.4-2.0); MONOCYTES % (AUTO) 6.3 (0-10); NEUTROPHILS # (AUTO) 6.2 K/ul (2.0-6.9); NEUTROPHILS % (AUTO) 65.7; PLATELET COUNT 278 10^3/uL (140-440); RED BLOOD COUNT 3.11 10^6/ul (4.20-5.40); WHITE BLOOD COUNT 9.48 K/ul (4.6-10.2)
[2016-08-27 05:09] LABS: ALBUMIN 2.9 g/dL (3.4-5.0); ALBUMIN/GLOBULIN RATIO 0.91; ANION GAP 14.2; BILIRUBIN,TOTAL 0.24 mg/dL (0.00-1.20); BUN/CREATININE RATIO 16.52; CALCIUM 8.5 mg/dL (8.2-10.2); CREATININE 1.15 mg/dL (0.60-1.30); POTASSIUM 5.2 mmol/L (3.5-5.10); TOTAL PROTEIN 6.1 g/dL (5.8-8.1)
[2016-08-27] MEDS: PROTONIX PO SCH (05:42)
[2016-08-27 06:18] VITALS: BP 99/68; TEMP 98.9
[2016-08-27] MEDS ORDERED: KAYEXALATE SUSP PO STA (07:59)
[2016-08-27] MEDS: BACTRIM DS 800/160 MG PO SCH (08:11)
[2016-08-27] MEDS: NEURONTIN PO SCH (08:11)
[2016-08-27] MEDS: COLACE PO SCH (08:11)
[2016-08-27] MEDS: TRADJENTA PO SCH (08:11)
[2016-08-27] MEDS: GLUCOPHAGE PO SCH (08:11)
[2016-08-27] MEDS: ASPIRIN EC PO SCH (08:12)
[2016-08-27] MEDS: FERROUS SULFATE PO SCH (08:12)
[2016-08-27] MEDS: ZESTRIL PO SCH (08:12)
[2016-08-27] MEDS: LOPRESSOR PO SCH (08:12)
--- NOTE | 2016-08-27 10:04 | PCM.PROG ---
Attending Provider: ATTENDING PROVIDER: Dr. NAKUL MARTINEZ DATE OF SERVICE: 08/27/16 SUBJECTIVE: This 61 year old WHITE/ F was hospitalized 08/15/16. The patient states she is feeling better. She has been up walking; PT has released the patient. The patient is willing to go home. She has a followup with the orthopedic surgeon the first week of September. Hemoglobin is stable. One stool for occult blood was positive. The patient has history of a colonoscopy exam 8 years ago per patient. Suggestion made to the patient to followup with Dr. Harmon in one week for recheck of hemoglobin. The right knee surgical site has healthy granulation tissue with no drainage. The zahra have been removed. REVIEW OF SYSTEMS: CONSTITUTIONAL: No fever, no chills. ENDOCRINE: No weight loss or weight gain. HEENT: No sinus drainage, no sore throat. CVS: No angina symptoms. No CHF symptoms. No palpitations. No atypical chest pain for CAD. No shortness of breath. RESPIRATORY: No cough, no hemoptysis. GI: No melena. No abdominal pain. No nausea, no vomiting. : No hematuria. No polyuria. SKIN: No rash. Right knee surgical site looks healthy. MUSCULOSKELETAL: No pain. BAKERY DEMONSTRATOR: No blackout, no dizziness. No headache. No double vision. PSYCHIATRIC: Not anxious; no depression. No suicidal thoughts. No homicidal thoughts. PHYSICAL EXAMINATION: GENERAL: Sitting in chair in no distress. VITAL SIGNS: Temperature 98.9 F, Pulse 61, Respiratory Rate 14, BP 99/68, Pulse Ox 96% HEENT: Normocephalic, atraumatic. Mucosa is dry, pallor positive. NECK: No JVP, no carotid bruit. No lymphadenopathy. CARDIAC: S1, S2, no S3. No murmur, gallop or regurgitation. LUNGS: Clear to auscultation. ABDOMEN: Soft, non-tender. Bowel sounds active. No rigidity, guarding or CVA tenderness. EXTREMITIES: No clubbing, cyanosis or edema. Right knee healing well. No sign of infection. NEUROLOGIC: Awake, alert and oriented x3. LYMPHATIC: No palpable lymph nodes SKIN: Not dry. Intact. MUSCULOSKELETAL: No joint swelling. LAB REVIEW: 08/27/16 04:43 08/27/16 04:43 08/27/16 04:43: WBC 9.48, RBC 3.11 L, Hgb 9.1 L, Hct 28.6 L, MCV 92.0, MCH 29.3 , MCHC 31.8, RDW Coeff of Jame 14.5, Plt Count 278, Immature Gran % (Auto) 0.9, Neut % (Auto) 65.7, Lymph % (Auto) 23.8, [place]oshone % (Auto) 6.3, Eos % (Auto) 2.8, Baso % (Auto) 0.5, Immature Gran # (Auto) 0.1, Neut # 6.2, Lymph # 2.3, [place]oshone # 0.6, Eos # 0.3, Baso # 0.1, Sodium 137, Potassium 5.2 H, Chloride 106, Carbon Dioxide 22 L, Anion Gap 14.2, BUN 19 H, Creatinine 1.15, Estimated GFR (MDRD) 48.00, BUN/Creatinine Ratio 16.52, Glucose 107, Calcium 8.5, Total Bilirubin 0.24, AST 12 L, ALT 6 L, Alkaline Phosphatase 48 L, Total Protein 6.1, Albumin 2.9 L, Globulin 3.2, Albumin/Globulin Ratio 0.91 08/26/16 13:20: Stl Occult Blood (IFOB) Positive, Stool Occult Blood #2 No specimen received, Stool Occult Blood #3 No specimen received ASSESSMENT: 1. RIGHT KNEE REPLACEMENT 2. DIABETES, UNDER CONTROL 3. ANEMIA, POST SURGICAL AND ANEMIA OF CHRONIC DISEASE 4. UTI 5. HYPERTENSION 6. RHEUMATOID ARTHRITIS 7. HISTORY OF ATRIAL FIBRILLATION PLAN: 1. Discharge home. 2. Activity as tolerates. 3. Discussed pain medications risks and benefits, watch for drowsiness; discussed drop in hemoglobin with one stool positive for occult blood - to follow that in one week with Dr. Harmon. 4. Upon discharge home, the patient would benefit from a rolling walker for assistance with ambulation. This was discussed with the patient in detail, she voiced understanding and is in agreement. Plan and coordination of the patient's care discussed in the presence of Teaching Fellow and nurse. EDUCATION: As above in the Plan. CONDITION: Stable SCRIBED BY: JONI MOTTA, Aviation Maintenance Instructor scribed while in presence of service performed by Dr. NAKUL MARTINEZ on 08/27/16 ([id number])
--- NOTE | 2016-08-27 15:21 | CM.DICTOOL ---
ADMISSION: 08/15/16 22:10 DISCHARGE: 08/27/16 DATE OF SERVICE: 08/27/16 FINAL DIAGNOSIS TOTAL RIGHT KNEE ARTHROPLASTY, DR. SELF - 08-12-16 UTI (E-COLI ORGANISM) ANEMIA, CHRONIC ON ACUTE (TRANSFUSED 1 UNIT 08/25/16) CAD S/P CABG-TWICE CA X 2 HYPERTENSION DYSLIPIDEMIA DM, TYPE 2 RHEUMATOID ARTHRITIS GERD ANXIETY LAST VITALS Temp Pulse Resp BP Pulse Ox 98.9 F 61 14 99/68 96 08/27/16 06:00 08/27/16 06:00 08/27/16 06:00 08/27/16 06:00 08/27/16 06:00 ACTIVE MEDICATIONS Aspirin (Aspirin Ec) 81 mg PO DAILYWM [facility] Last Admin: 08/27/16 08:12 Dose: 81 mg Famotidine (Pecid) 20 mg PO BID Ferrous Sulfate (Ferrous Sulfate) 324 mg PO TID [facility] ([facility]) Last Admin: 08/27/16 08:12 Dose: 324 mg Gabapentin (Neurontin) 300 mg PO BID [facility] Last Admin: 08/27/16 08:11 Dose: 300 mg Linagliptin (Tradjenta) 5 mg PO DAILY [facility] Last Admin: 08/27/16 08:11 Dose: 5 mg Lisinopril (Zestril) 5 mg PO DAILY [facility] Last Admin: 08/27/16 08:12 Dose: 5 mg Metformin HCl (Glucophage) 1,000 mg PO BIDWM [facility] Last Admin: 08/27/16 08:11 Dose: 1,000 mg Metoprolol Tartrate (Lopressor) 25 mg PO DAILY [facility] ([facility]) Last Admin: 08/27/16 08:12 Dose: 50 mg Rivaroxaban (Xarelto) 20 mg PO QPM [facility] Last Admin: 08/26/16 17:21 Dose: 20 mg Ropinirole HCl (Requip) 0.5 mg PO BEDTIME [facility] Last Admin: 08/26/16 20:34 Dose: 0.5 mg Rosuvastatin Calcium (Crestor) 20 mg PO BEDTIME [facility] Last Admin: 08/26/16 20:38 Dose: 20 mg Sertraline HCl (Zoloft) 100 mg PO BEDTIME [facility] Last Admin: 08/26/16 20:36 Dose: 100 mg Sotalol HCl (Betapace) 40 mg PO BEDTIME [facility] Last Admin: 08/26/16 20:35 Dose: 40 mg Tramadol (Ultram) 50 mg PO Q6H PRN PAIN (DR. SELF) Trimethoprim/Sulfamethoxazole (Bactrim Ds 800/160 Mg) 1 tab PO Q12HR X5 DAYS [facility] ([facility]) Last Admin: 08/27/16 08:11 Dose: 1 tab denotes medications added during this stay that will be continued at discharge ALLERGIES acetaminophen [From Percocet] Allergy (Severe, Verified 10/14/15 18:51) very sick to stomach oxycodone HCl [From Percocet] Allergy (Severe, Verified 10/14/15 18:51) very sick to stomach NEW PRESCRIPTIONS: BACTRIM DS 800/160 MG, TAKE ONE TABLET BY MOUTH EVERY 12 HOURS FOR 5 (FIVE) DAYS FERROUS SULFATE 324 MG, TAKE ONE TABLET BY MOUTH TWICE DAILY METOPROLOL TARTRATE (LOPRESSOR) 50 MG, TAKE ONE TABLET BY MOUTH DAILY SMOKING: NONSMOKER DISEASE SPECIFIC EDUCATION: JOINT REPLACEMENT UTI ANEMIA HOME MEDICATIONS NEW PRESCRIPTIONS FOLLOW UP WITH DR. SELF FOLLOW UP WITH PRIMARY CARE PROVIDER FOLLOW UP WITH SURVEY ASSOCIATE LAB REVIEW: 08/27/16 04:43 08/27/16 04:43 08/27/16 04:43: WBC 9.48, RBC 3.11 L, Hgb 9.1 L, Hct 28.6 L, MCV 92.0, MCH 29.3 , MCHC 31.8, RDW Coeff of Jame 14.5, Plt Count 278, Immature Gran % (Auto) 0.9, Neut % (Auto) 65.7, Lymph % (Auto) 23.8, [place] % (Auto) 6.3, Eos % (Auto) 2.8, Baso % (Auto) 0.5, Immature Gran # (Auto) 0.1, Neut # 6.2, Lymph # 2.3, [place] # 0.6, Eos # 0.3, Baso # 0.1, Sodium 137, Potassium 5.2 H, Chloride 106, Carbon Dioxide 22 L, Anion Gap 14.2, BUN 19 H, Creatinine 1.15, Estimated GFR (MDRD) 48.00, BUN/Creatinine Ratio 16.52, Glucose 107, Calcium 8.5, Total Bilirubin 0.24, AST 12 L, ALT 6 L, Alkaline Phosphatase 48 L, Total Protein 6.1, Albumin 2.9 L, Globulin 3.2, Albumin/Globulin Ratio 0.91 08/26/16 13:20: Stl Occult Blood (IFOB) Positive, Stool Occult Blood #2 No specimen received, Stool Occult Blood #3 No specimen received PLAN: DISCHARGE HOME TODAY RETURN TO [facility] TO HAVE LABS (CBC WITH DIFFERENTIAL AND CMP) THESE LABS WILL BE FORWARDED TO DR. DUGAN KEEP YOUR APPOINTMENT WITH DR. DUGAN SCHEDULED ON 09/08/16 AT 10 A.M. KEEP YOUR FOLLOW UP APPOINTMENT WITH DR. SELF ON 09/10/16 RESUME YOUR HOME MEDICATIONS PER LIST PROVIDED BY THE NURSING STAFF NEW PRESCRIPTIONS: BACTRIM DS 800/160 MG, TAKE ONE TABLET BY MOUTH EVERY 12 HOURS FOR 5 (FIVE) DAYS FERROUS SULFATE 324 MG, TAKE ONE TABLET BY MOUTH TWICE DAILY METOPROLOL TARTRATE (LOPRESSOR) 50 MG, TAKE ONE TABLET BY MOUTH DAILY ACTIVITY: GET PLENTY OF REST AT HOME. GRADUALLY INCREASE YOUR ACTIVITY LEVEL ACCORDING TO YOUR TOLERATION USE YOUR ROLLING WALKER INSTRUCTED BY PT/OT DIET: HEALTHY HEART CONSISTENT CARBS/DIABETIC STAY WELL HYDRATED SUMMARY: THE PATIENT IS ALERT AND ORIENTED X3. SHE CURRENTLY RESIDES AT HOME ALONE. SHE HAS A CANE AND DIABETIC TESTING SUPPLIES AT HOME. SHE WILL REQUIRE A ROLLING WALKER TO ASSIST WITH AMBULATION. CASE MANAGEMENT WILL ARRANGE FOR THIS EQUIPMENT. SHE HAS DECLINED OFFERS FOR PHYSICAL THERAPY, OCCUPATIONAL THERAPY AND HOME HEALTH NURSING SERVICES SEVERAL TIMES THROUGHOUT THIS STAY. TODAY WE DISCUSSED HER DISCHARGE NEEDS AGAIN. SHE CONTINUES TO DECLINE THESE SERVICES SAYING SHE IS GOING TO STAY WITH HER SISTER AND FEELS CONFIDENT THAT SHE IS CAPABLE TO MANAGE WITHOUT THESE SERVICES. HER INCISION IS WELL APPROXIMATED. KIMBERLEY WERE REMOVED ON 08/25/[address] SELF'S INSTRUCTIONS. STERI-STRIPS ARE IN PLACE. THERE IS NO DRAINAGE, VERY MINIMAL SWELLING AND NO S/S INFECTION PRESENT. OTHERWISE, THE PATIENT'S SKIN TURGOR IS INTACT. SHE IS WELL HYDRATED AND PAIN CONTROLLED WITH MEDICATIONS PRESCRIBED BY DR. SELF. SHE IS AWARE AND AGREEABLE FOR TODAY'S DISCHARGE. NAKUL MARTINEZ M.D.
--- NOTE | 2016-09-02 15:14 | DS ---
DATE OF SERVICE: 08/27/16 FINAL DIAGNOSIS: 1. TOTAL RIGHT KNEE ARTHROPLASTY, DR. ROBLES 08/12/16 2. URINARY TRACT INFECTION, E.COLI ORGANISM 3. ANEMIA, CHRONIC ON ACUTE (TRANSFUSED 1 UNIT 08/25/16) 4. CORONARY ARTERY DISEASE, STATUS POST CABG TIMES TWO 5. MYOCARDIAL INFARCTION TIMES TWO 6. HYPERTENSION 7. DYSLIPIDEMIA 8. DIABETES MELLITUS TYPE II 9. RHEUMATOID ARTHRITIS 10. GASTROESOPHAGEAL REFLUX DISEASE 11. ANXIETY PLAN: 1. Discharge home today. 2. Return to [facility] outpatient center to have labs, CBC with differential and CMP. These labs will be forwarded to Dr. Harmon 3. Keep your appointment with Dr. Harmon as scheduled on 09/08/16 at 10 a.m. 4. Keep your follow up appointment with Dr. Robles on 09/10/16. 5. Resume your home medications as per list provided by the nursing staff. MEDICATIONS AT DISCHARGE: Gabapentin, Metformin, Sotalol, Famotidine, Sertraline, Lisinopril, Aspirin, Requip, Crestor, ProAir, Xarelto and Tradjenta. NEW PRESCRIPTIONS: Bactrim DS 800/160 mg, take on tablet by mouth every 12 hours for 5 days. Ferrous sulfate 324 mg, take one tablet by mouth twice daily. Metoprolol Tartrate (Lopressor) 50 mg, take one tablet by mouth daily. DIET INSTRUCTIONS: Healthy heart, consistent carbs, diabetic. Stay well hydrated. ACTIVITY: Get plenty of rest at home. Gradually increase your activity level according to your toleration. Use your rolling walker as instructed by PT/OT. DISEASE SPECIFIC EDUCATION: About joint replacement, urinary tract infection, anemia, home medications, new prescriptions and follow up appointment were discussed. HOSPITAL COURSE: The patient was initially an orthopedic patient at [facility] under Dr. Robles. She had a right knee replacement, elective. After that, the patient was transferred to [facility] for the Physical Therapy and Occupational Therapy. PT/OT evaluated and continued the therapy. Her hemoglobin went from 9.8 to 8.8 and then to 8.0, at that time one unit was given and again it dropped to 9.1. As the patient did have a colonoscopy and had a chcf history of anemia. The patient had never had any blood transfusions in the past. Potassium was slightly elevated at 5.3, 5.5 and 5.2, but no acute kidney problems Urinalysis was positive for e.coli. The patient was started on Bactrim. Meanwhile, the patient was up and about and did not have any complications. The zahra were removed from the right wound and which did heal good. No drainage. Tenderness is present, but no drainage was seen. As the patient was feeling better and she met her physical therapy and occupational goals, the patient was discharged to home on Bactrim DS and strictly advised that she has to go and have a follow up with Dr. Harmon in one week to recheck the hemoglobin and hematocrit. The patient verbalized understanding of that. The patient did have a colonoscopy eight years ago, which was documented in the chart. Time spent on the patient is more than 45 minutes today. JADE
== END 2016-08-27 13:16 | disposition home or self-care (01) | DRG 560 ==
LOC: MEDSURG B 22:10
PROVIDERS: ADMIT Emergency Medicine; ATTEND Emergency Medicine
PROC: 30233N1 Transfusion of Nonautologous Red Blood Cells into Peripheral Vein, Percutaneous Approach (ICD-10-PCS; principal; 2016-08-25)
DX: Z47.1 Aftercare following joint replacement surgery (principal); Z96.651 Presence of right artificial knee joint; D50.0 Iron deficiency anemia secondary to blood loss (chronic); I48.91 Unspecified atrial fibrillation; I25.10 Atherosclerotic heart disease of native coronary artery without angina pectoris; E11.9 Type 2 diabetes mellitus without complications; N39.0 Urinary tract infection, site not specified; B96.20 Unspecified Escherichia coli [E. coli] as the cause of diseases classified elsewhere; R19.5 Other fecal abnormalities; I10 Essential (primary) hypertension; E78.5 Hyperlipidemia, unspecified; M06.9 Rheumatoid arthritis, unspecified; K21.9 Gastro-esophageal reflux disease without esophagitis; F41.9 Anxiety disorder, unspecified; I25.2 Old myocardial infarction; Z95.1 Presence of aortocoronary bypass graft; Z79.84 Long term (current) use of oral hypoglycemic drugs; Z79.899 Other long term (current) drug therapy
CPT/HCPCS: 36415; 36430; 80053; 81001; 82272; 82607; 82728; 82746; 82962; 83540; 83550; 84466; 85014; 85018; 85025; 85045; 86850; 86900; 86922; 87086; 87186; 93005; 93010; 97802; 99306; 99309; 99316

== ENCOUNTER 2016-09-05 10:42 | Outpatient (CLI) | payer OTHER ==
[2016-09-05 11:33] LABS: BASOPHILS % (AUTO) 0.5 % (0.0-3.0); EOSINOPHILS # (AUTO) 0.2 K/ul (0.0-0.7); EOSINOPHILS % (AUTO) 3.8 % (0.0-7.0); HEMATOCRIT 33.1 % (37.0-47.0); HEMOGLOBIN 10.3 g/dl (12.0-16.0); IMMATURE GRANULOCYTE % (AUTO) 0.5 % (0.0-5.0); LYMPHOCYTES # (AUTO) 1.8 K/uL (0.60-3.4); LYMPHOCYTES % (AUTO) 30.7 (10.0-50.0); MEAN CORPUSCULAR HEMOGLOBIN 29.2 pg (27.0-31.0); MEAN CORPUSCULAR HGB CONC 31.1 (31.8-35.4); MEAN CORPUSCULAR VOLUME 93.8 fl (81.0-99.0); MONOCYTES # (AUTO) 0.3 K/uL (0.4-2.0); MONOCYTES % (AUTO) 5.9 (0-10); NEUTROPHILS # (AUTO) 3.4 K/ul (2.0-6.9); NEUTROPHILS % (AUTO) 58.6; PLATELET COUNT 282 10^3/uL (140-440); RED BLOOD COUNT 3.53 10^6/ul (4.20-5.40)
[2016-09-05 11:43] LABS: ALBUMIN 3.4 g/dL (3.4-5.0); ALBUMIN/GLOBULIN RATIO 0.94; ANION GAP 14.7; BILIRUBIN,TOTAL 0.44 mg/dL (0.00-1.20); BUN/CREATININE RATIO 12.71; CREATININE 1.18 mg/dL (0.60-1.30); POTASSIUM 5.7 mmol/L (3.5-5.10)
== END 2016-09-05 10:43 | disposition home or self-care (01) ==
LOC: LAB 10:42
PROVIDERS: ATTEND Emergency Medicine
DX: D64.9 Anemia, unspecified (principal); E87.5 Hyperkalemia
CPT/HCPCS: 36415; 80053; 85025

== ENCOUNTER 2017-06-21 17:26 | Emergency (ER) ==
[2017-06-21 17:40] VITALS: BP 148/86; TEMP 98.8; BMI 37.3
[2017-06-21] MEDS ORDERED: TYLENOL PO STA (18:23)
--- NOTE | 2017-06-21 18:29 | ED.PDOC ---
General ED Provider: Dr. DANIELLE OLIVEIRA Chief Complaint: Fall Stated Complaint: Patient is a 62 year old female who comes to the ER with complains of occipital area pain after fall out of bed hitting her night stand and the back of her head. Denies any loss of conciousness. She states that she is on blood thinners. Denies any dizziness. Time Seen by Physician: 18:25 Mode of Arrival: Walk-In Information Source: Patient Primary Care Provider: SE DUGAN Nursing and Triage Documentation Reviewed and Agree: Yes Trauma/Injury Complaint Exam - Head Injury Complaint/Exam Location of Pain: Reports: Scalp Mechanism of Injury: Reports: Trauma Onset/Duration: this Morning when she woke up. Symptoms Are: Still present Initial Severity: Moderate Current Severity: Moderate (01/12) Character: Reports: Throbbing, Pressure Aggravating: Reports: None Alleviating: Reports: None Associated Signs and Symptoms: Reports: Neck pain. Denies: Confusion, Memory loss, Seizure, Epistaxis, Dental malocclusion, Nausea, Vomiting Loss of Consciousness: None SDH Risk Factors: Present: None Cervical Spine Injury Risk Factors: Present: None Related Surgical History: Reports: None Immobilization Removed Post Exam: No Head Injury Findings: Present: Normal findings Glascow Coma Scale (see protocol): 15 Focal Weakness: Present: None Focal Sensory Loss: Present: None Gait: Normal Gag Reflex Present: Yes Finger to Nose: Normal Rhomberg Test Positive: No Babinski Sign: Negative Right, Negative Left Heel to Toe Normal: Yes Nexus Low Risk Criteria: No post-midline CS tender, No evidence of intoxicat., No Altered LOC, No focal neuro deficit, No distracting injuries Head Picture: 1 - tenderness and contusion. Differential Diagnoses: Sprain, Strain, Trauma, Other (contusion.) Review of Systems - Review Of Systems Constitutional: Reports: No symptoms Eyes: Reports: No symptoms Ears, Nose, Mouth, Throat: Reports: No symptoms Respiratory: Reports: No symptoms Cardiac: Reports: No symptoms GI: Reports: No symptoms : Reports: No symptoms Musculoskeletal: Reports: Neck pain Skin: Reports: Bruising Neurological: Reports: Anxiety Endocrine: Reports: No symptoms Hematologic/Lymphatic: Reports: No symptoms All Other Systems: Reviewed and Negative Past Medical History - Past Medical History Endocrine: Reports: DM 2, Dyslipidemia Cardiovascular: Reports: CAD, Hypertension, A-Fib Respiratory: Reports: None Hematological: Reports: None Gastrointestinal: Reports: GERD Genitourinary: Reports: None Neuro/Psych: Reports: Anxiety, Depression Musculoskeletal: Reports: Arthritis Cancer: Reports: None Last Menstrual Period: unknown - Surgical History General Surgical History: Reports: CABG, Pacemaker, Other (Stent placement ) - Family History Family History: Reports: None - Social History Smoking Status: Never smoker Hx Substance Use: No Alcohol Screening: None Physical Exam - Physical Exam Appearance: Ill-appearing Pain Distress: Moderate Eyes: AUDRA, EOMI, Conjunctiva clear ENT: Ears normal, Nose normal, Oropharynx normal Neck: Nonsupple (tendeness to palpation.) Respiratory: Airway patent, Breath sounds clear, Breath sounds equal, Respirations nonlabored Cardiovascular: RRR, Pulses normal, No rub, No murmur GI/: Soft, Nontender, No masses, Bowel sounds normal, No Organomegaly Musculoskeletal: Normal strength, ROM intact, No edema, No calf tenderness Skin: Warm, Dry Neurological: Sensation intact, Motor intact, Reflexes intact, Cranial nerves intact, Alert, Oriented Psychiatric: Anxious Interpretation - Radiology Interpretation Radiology Interpretation By: Radiologist Radiology Results: Negative Exam Interpreted: CT Scan (Head and C spine ) Critical Care Note - Critical Care Note Total Time (mins): 0 Course - Course Orders, Labs, Meds: Orders Category Date Time Status Acetaminophen [Tylenol] MEDS 06/21/17 18:23 Discontinued 1,000 mg PO ONCE STA CT CERVICAL SPINE W/O CONTRAST Stat RADS 06/21/17 18:[address] HEAD W/O CONTRAST Stat RADS 06/21/17 18:24 Taken Medications Discontinued Medications Generic Name Dose Route Start Last Admin Trade Name Freq PRN Reason Stop Dose Admin Acetaminophen 1,000 mg 06/21/17 18:23 06/21/17 18:42 Tylenol PO 06/21/17 18:24 1,000 mg ONCE STA Administration Vital Signs: Temp Pulse Resp BP Pulse Ox 06/21/17 17:28 98.8 F 69 20 148/86 H 96 Departure - Departure Time of Disposition: 19:00 Disposition: HOME SELF-CARE Discharge Problem: Falls Head concussion Qualifiers: Encounter type: initial encounter Loss of consciousness presence/duration: without LOC Qualified Code(s): S06.0X0A - Concussion without loss of consciousness, initial encounter Contusion Qualifiers: Encounter type: initial encounter Contusion area: neck Qualified Code(s): S10.93XA - Contusion of unspecified part of neck, initial encounter Instructions: Concussion (ED), Contusion in Adults (ED) Condition: Fair Pt referred to PMD for follow-up: Yes Additional Instructions: Take Tylenol as needed for headache Rest. Follow up with PCP in 3 days Allergies/Adverse Reactions: Allergies oxycodone HCl [From Percocet] Allergy (Severe, Verified 10/14/15 18:51) very sick to stomach Home Medications: Ambulatory Orders Famotidine 20 mg PO BID #60 12/27/13 Gabapentin 300 mg PO BID #60 12/27/13 Metformin HCl 1,000 mg PO BID #60 12/27/13 Sotalol HCl [Sotalol] 40 mg PO BID #60 12/27/13 Albuterol Sulfate [Proair Hfa] 2 puff IH Q4H PRN #1 puff 10/14/15 Aspirin [Ecotrin] 81 mg PO DAILY 10/14/15 Lisinopril [Zestril] 5 mg PO DAILY 10/14/15 Ropinirole HCl [Requip] 0.5 mg PO BEDTIME 10/14/15 Rosuvastatin Calcium [Crestor] 10 mg PO BEDTIME 10/14/15 Sertraline HCl 100 mg PO BEDTIME 10/14/15 Linagliptin [Tradjenta] 5 mg PO DAILY 08/27/16 Metoprolol Tartrate [Lopressor] 25 mg PO DAILY #30 tablet 08/27/16 Rivaroxaban [Xarelto] 20 mg PO QPM 08/27/16 Disposition Discussed With: Patient, Family
--- NOTE | 2017-06-21 18:51 | CT ---
Exam: CT brain without contrast Clinical indication: Fall with head injury. Comparison: Prior MRI dated 08/24/2013. TECHNIQUE: Axial unenhanced CT images from the skull base through the brain were obtained. Coronal and sagital reformats were performed. Findings: There is no evidence of intra or extra-axial hemorrhage. There is no evidence of mass, infarct or midline shift. The ventricles and basilar cisterns are within normal limits. The visualized paranasal sinuses and mastoid air cells are clear. The visualized bony structures are unremarkable. Impression: Negative unenhanced CT of the brain.
--- NOTE | 2017-06-21 18:58 | CT ---
Exam: CT cervical spine without contrast Clinical indication: Fall with injury and neck pain. TECHNIQUE: Axial unenhanced CT images from the upper thoracic spine through the skull base were obta ined followed by coronal and sagittal reformats. Findings: The alignment of the cervical spine is within normal limits. There is some facet degenerative changes at the C3-C4 and C4-C5 level. Otherwise, there are no fract ures, dislocations or other significant bony abnormalities. The disc spaces are well maintained. There is a small amount of soft tissue gas within the left paraspinal muscles at the left side of the T3 vertebral body spinous process of uncertain etiology. The visualized soft tissues and pulmonary parenchyma are unremarkable. Impression: 1. No acute cervical fracture. 2. Small amount of soft tissue gas within the paraspinal muscles along the left side of the T3 verte bral body spinous process of uncertain etiology and significance. 3. Mild cervical facet degenerative changes.
[2017-06-21] MEDS ORDERED: ED AFTER HOURS SUPPLY MED SENT HOME PO ONE (19:07)
[2017-06-21] MEDS ORDERED: NORCO 5-325 ONE ×2 (19:14→19:19)
== END 2017-06-21 19:21 | disposition home or self-care (01) ==
LOC: ED 17:26
DX: S06.0X0A Concussion without loss of consciousness, initial encounter (principal); S10.93XA Contusion of unspecified part of neck, initial encounter; W06.XXXA Fall from bed, initial encounter
CPT/HCPCS: 99283

== ENCOUNTER 2017-09-29 15:02 | Outpatient (CLI) | END 2017-09-29 15:03 | disposition home or self-care (01) | LOC: LAB 15:02 | DX: Z01.812 Encounter for preprocedural laboratory examination (principal); D50.0 Iron deficiency anemia secondary to blood loss (chronic) | CPT/HCPCS: 36415; 80048; 85025; 85610 ==

== ENCOUNTER 2017-11-03 09:33 | Outpatient (CLI) | END 2017-11-03 09:34 | disposition home or self-care (01) | LOC: LAB 09:33 | DX: Z01.812 Encounter for preprocedural laboratory examination (principal); I48.92 Unspecified atrial flutter | CPT/HCPCS: 36415; 80048; 85025; 85610 ==

== ENCOUNTER 2017-12-02 14:37 | Outpatient (CLI) | END 2017-12-02 14:38 | disposition home or self-care (01) | LOC: LAB 14:37 | DX: I25.10 Atherosclerotic heart disease of native coronary artery without angina pectoris (principal); Z01.812 Encounter for preprocedural laboratory examination | CPT/HCPCS: 36415; 80048; 85025; 85610 ==

== ENCOUNTER 2017-12-05 09:52 | Outpatient (CLI) | END 2017-12-05 09:53 | disposition home or self-care (01) | LOC: LAB 09:52 | DX: I25.10 Atherosclerotic heart disease of native coronary artery without angina pectoris (principal); I48.92 Unspecified atrial flutter; Q21.1 Atrial septal defect; R07.9 Chest pain, unspecified; I50.9 Heart failure, unspecified; E87.5 Hyperkalemia; I10 Essential (primary) hypertension | CPT/HCPCS: 36415; 80048 ==

== ENCOUNTER 2017-12-15 14:15 | Outpatient (CLI) | payer OTHER | END 2017-12-15 14:16 | disposition home or self-care (01) | LOC: LAB 14:15 | PROVIDERS: ATTEND Internal Medicine Adult Congenital Heart Disease | DX: I25.119 Atherosclerotic heart disease of native coronary artery with unspecified angina pectoris (principal); E87.5 Hyperkalemia; Z79.899 Other long term (current) drug therapy | CPT/HCPCS: 36415; 80048 ==

== ENCOUNTER 2018-03-02 10:32 | Outpatient (POV) | payer OTHER | END 2018-03-02 17:00 | LOC: OUTPT 10:32 | PROVIDERS: ATTEND Otolaryngology | DX: H91.90 Unspecified hearing loss, unspecified ear (principal) ==

== ENCOUNTER 2019-03-02 17:11 | Outpatient (CLI) | END 2019-03-02 17:34 | disposition short-term general hospital (02) | LOC: AMBL 17:11 | PROVIDERS: ATTEND Internal Medicine | DX: R53.1 Weakness (principal); R42 Dizziness and giddiness; I95.9 Hypotension, unspecified; R11.2 Nausea with vomiting, unspecified; R19.7 Diarrhea, unspecified; J44.9 Chronic obstructive pulmonary disease, unspecified; Z95.0 Presence of cardiac pacemaker ==